=== PATIENT | male | born 1995 ===

== ENCOUNTER 2017-05-26 14:40 | Emergency (ER) | payer BC ==
[2017-05-26 14:54] VITALS: RESP 20; TEMP 99.2
[2017-05-26 15:01] LABS: BASOPHILS % (AUTO) 1 % (0-3); EOSINOPHILS % (AUTO) 1 % (0-9); HEMATOCRIT 45 % (39-53); MEAN CORPUSCULAR HGB CONC 33.6 gm/dl (32.0-36.0); MEAN CORPUSCULAR VOLUME 88 fL (80-100); MONOCYTES % (AUTO) 7.8 % (0-12); NEUTROPHILS % (AUTO) 68.8 % (37-80)
[2017-05-26] MEDS ORDERED: SODIUM CHLORIDE 0.9% 1000ML 1,000 ML IV SCH ×2 (15:15→15:30)
[2017-05-26 15:25] LABS: CALCIUM 9.7 mg/dl (8.5-10.1); GLOM FILT RATE 105 mL/min (>60); POTASSIUM 3.4 mMol/L (3.5-5.1); SODIUM 143 mMol/L (136-145)
[2017-05-26] MEDS ORDERED: CLONIDINE 0.1 MG TAB PO ONE (16:13)
[2017-05-26] MEDS ORDERED: CLONIDINE 0.1 MG TAB ONE (16:15)
[2017-05-26] MEDS ORDERED: SODIUM CHLORIDE 0.9% 1000ML 1,000 ML IV ONE (16:16)
[2017-05-26 17:14] LABS: AMPHETAMINES NEGATIVE (NEGATIVE); METHADONE NEGATIVE (NEGATIVE); OPIATES(OP13) POSITIVE (NEGATIVE); OXYCODONE(OXY) NEGATIVE (NEGATIVE); PROPOXYPHENE(PPX) NEGATIVE (NEGATIVE); TRICYCLIC ANTIDEPRESSANTS NEGATIVE (NEGATIVE)
[2017-05-26 17:38] VITALS: O2SAT 100
[2017-05-26] MEDS ORDERED: POTASSIUM CHLORIDE 10 MEQ TER PO ONE (18:40)
[2017-05-26] MEDS ORDERED: POTASSIUM CHLORIDE 10 MEQ TER ONE (18:43)
[2017-05-26 19:25] VITALS: BP 115/52; PULSE 66
== END 2017-05-26 18:55 | disposition left against medical advice (07) ==
LOC: ED 14:40
DX: F11.23 Opioid dependence with withdrawal (principal)
CPT/HCPCS: 80048; 80305; 80307; 83735; 84484; 85025; 93005; 99284